=== PATIENT | female | born 1995 | race Asian ===

== ENCOUNTER 2017-01-06 11:57 | Emergency (ER) | payer OTHER ==
[~2017-01-06] VITALS: Ht 165.1 cm; Wt 56.7 kg
[2017-01-06 13:07] VITALS: BP 159/94; TEMP 98.2
== END 2017-01-06 13:08 | disposition home or self-care (01) ==
LOC: ED 11:57
DX: K52.9 Noninfective gastroenteritis and colitis, unspecified (principal); R51 Headache; R11.2 Nausea with vomiting, unspecified
CPT/HCPCS: 81000; 81025; 99282

== ENCOUNTER 2017-01-23 12:30 | Emergency (ER) | payer OTHER ==
[~2017-01-23] VITALS: Ht 167.6 cm; Wt 56.7 kg
[2017-01-23 14:38] VITALS: BP 128/68; TEMP 99
== END 2017-01-23 14:38 | disposition home or self-care (01) ==
LOC: ED 12:30
DX: J06.9 Acute upper respiratory infection, unspecified (principal); J20.9 Acute bronchitis, unspecified
CPT/HCPCS: 99281

== ENCOUNTER 2017-03-16 16:10 | Emergency (ER) | payer OTHER ==
[~2017-03-16] VITALS: Ht 167.6 cm; Wt 49.5 kg
[2017-03-16 17:11] VITALS: BP 115/71; TEMP 98.2
== END 2017-03-16 17:13 | disposition home or self-care (01) ==
LOC: ED 16:10
DX: S60.011A Contusion of right thumb without damage to nail, initial encounter (principal); S63.601A Unspecified sprain of right thumb, initial encounter; X58.XXXA Exposure to other specified factors, initial encounter; Y93.72 Activity, wrestling; Y92.098 Other place in other non-institutional residence as the place of occurrence of the external cause
CPT/HCPCS: 99282

== ENCOUNTER 2017-06-22 12:42 | Emergency (ER) | payer OTHER ==
[~2017-06-22] VITALS: Ht 162.6 cm; Wt 49.4 kg
[2017-06-22 13:04] VITALS: BP 111/82; TEMP 98.9
== END 2017-06-22 13:10 | disposition home or self-care (01) ==
LOC: ED 12:42
DX: R21 Rash and other nonspecific skin eruption (principal)
CPT/HCPCS: 99281

== ENCOUNTER 2017-12-10 13:33 | Emergency (ER) | payer OTHER ==
[~2017-12-10] VITALS: Ht 165.1 cm; Wt 54.9 kg
[2017-12-10 13:35] VITALS: BP 99/73; TEMP 98
[2017-12-10 15:16] LABS: PLATELET COUNT 243 K/uL (152-353)
[2017-12-10 15:19] LABS: POTASSIUM 3.8 mmol/L (3.6-5.2)
== END 2017-12-10 16:22 | disposition home or self-care (01) ==
LOC: ED 13:33
PROVIDERS: Internal Medicine
DX: K52.9 Noninfective gastroenteritis and colitis, unspecified (principal); Z33.1 Pregnant state, incidental
CPT/HCPCS: 36415; 80053; 81000; 81025; 82150; 83690; 85027; 99283

== ENCOUNTER 2018-04-13 11:41 | Emergency (ER) | payer OTHER ==
[~2018-04-13] VITALS: Ht 167.6 cm; Wt 59.0 kg
[2018-04-13 11:45] VITALS: TEMP 98.1
[2018-04-13 12:50] VITALS: BP 127/68
== END 2018-04-13 12:50 | disposition home or self-care (01) ==
LOC: ED 11:41
DX: M54.9 Dorsalgia, unspecified (principal); Z33.1 Pregnant state, incidental
CPT/HCPCS: 81000; 87086; 87088; 99282

== ENCOUNTER 2018-06-02 10:44 | Outpatient (CLI) | payer OTHER | END 2018-06-02 11:15 | disposition short-term general hospital (02) | LOC: AMB 10:44 | DX: Z33.1 Pregnant state, incidental (principal); R10.9 Unspecified abdominal pain | CPT/HCPCS: A0425; A0427 ==

== ENCOUNTER 2018-10-26 17:53 | Emergency (ER) | payer OTHER ==
[~2018-10-26] VITALS: Ht 167.6 cm; Wt 49.0 kg
[2018-10-26 19:31] LABS: PLATELET COUNT 181 K/uL (152-353)
[2018-10-26 20:03] LABS: POTASSIUM 3.1 mmol/L (3.6-5.2)
[2018-10-26 21:08] VITALS: BP 122/78; TEMP 98.3
== END 2018-10-26 21:13 | disposition home or self-care (01) ==
LOC: ED 17:53
PROVIDERS: Family Medicine
DX: N39.0 Urinary tract infection, site not specified (principal)
CPT/HCPCS: 36415; 80053; 81000; 81025; 85027; 87088; 96365; 96375; 99284; J0696; J1885

== ENCOUNTER 2018-12-31 08:28 | Emergency (ER) | payer OTHER ==
[~2018-12-31] VITALS: Ht 167.6 cm; Wt 49.0 kg
[2018-12-31 08:37] VITALS: TEMP 97.7
[2018-12-31 09:30] VITALS: BP 112/70
== END 2018-12-31 09:30 | disposition home or self-care (01) ==
LOC: ED 08:28
DX: J06.9 Acute upper respiratory infection, unspecified (principal)
CPT/HCPCS: 87502; 87651; 99283

== ENCOUNTER 2022-08-04 16:25 | Emergency (ER) | payer OTHER ==
[~2022-08-04] VITALS: Ht 167.6 cm; Wt 59.4 kg
[2022-08-04 17:34] LABS: PLATELET COUNT 218 K/uL (152-353)
[2022-08-04 17:36] LABS: POTASSIUM 2.7 mmol/L (3.6-5.2)
[2022-08-04] MEDS ORDERED: TAMIFLU75 MG PO (18:57)
[2022-08-04 19:30] VITALS: BP 103/57; TEMP 100.1
== END 2022-08-04 19:30 | disposition home or self-care (01) ==
LOC: ED 16:25
PROVIDERS: Emergency Medicine
DX: J10.1 Influenza due to other identified influenza virus with other respiratory manifestations (principal); M54.59 Other low back pain; E87.6 Hypokalemia; Z3A.29 29 weeks gestation of pregnancy
CPT/HCPCS: 36415; 80048; 81002; 85027; 87502; 93005; 96360; 96365; 99284

== ENCOUNTER 2022-10-06 10:08 | Emergency (ER) | payer OTHER ==
[~2022-10-06] VITALS: Ht 167.6 cm; Wt 61.2 kg
[2022-10-06 10:08] VITALS: BP 117/85; TEMP 99
[~2022-10-06 10:08] MED LIST: TAMIFLU75 MG PO
== END 2022-10-06 10:51 | disposition short-term general hospital (02) ==
LOC: ED 10:08
DX: O42.92 Full-term premature rupture of membranes, unspecified as to length of time between rupture and onset of labor (principal); Z3A.38 38 weeks gestation of pregnancy
CPT/HCPCS: 36415; 99285